=== PATIENT | male | born 1975 | race Caucasian/White ===

== ENCOUNTER 2021-03-30 13:03 | Emergency (ER) | payer OTHER ==
[2021-03-30 13:23] VITALS: BMI 30.7
[2021-03-30] MEDS ORDERED: BAMLANIVIMAB 700 MG, ETESEVIMAB 1,400 MG in SODIUM CHLORIDE 100 ML IVPB ONE (16:00)
[2021-03-30 16:25] VITALS: BP 112/78; PULSE 74; TEMP 98.2
== END 2021-03-30 18:46 | disposition home or self-care (01) ==
LOC: JCOVINFU 13:03
DX: U07.1 COVID-19 (principal)
CPT/HCPCS: 99284-25; Q0245